=== PATIENT | male | born 1975 | race Asian ===

== ENCOUNTER 2017-02-24 16:17 | Emergency (ER) | payer MEDICARE, OTHER ==
[~2017-02-24] VITALS: Ht 149.9 cm; Wt 111.5 kg
[~2017-02-24 16:17] MED LIST: ALLO100T PO; LEVO150 PO
[2017-02-24] MEDS ORDERED: FentaNYL CITRATE-PF 100 MCG/2 ML VIAL IVP ONE (18:30)
[2017-02-24] MEDS ORDERED: SODIUM CHLORIDE 0.9% 1,000 ML IV ONE (18:30)
[2017-02-24] MEDS ORDERED: ETOMIDATE 2 MG/ML 10 ML VIAL IVP ONE (18:30)
[2017-02-24] MEDS ORDERED: MIDAZOLAM HCL 5 MG/ML VIAL IVP ONE (18:30)
[2017-02-24 21:07] VITALS: BP 118/87
== END 2017-02-24 21:34 | disposition home or self-care (01) ==
LOC: EMS 16:35
DX: S43.014A Anterior dislocation of right humerus, initial encounter (principal); E03.9 Hypothyroidism, unspecified; X58.XXXA Exposure to other specified factors, initial encounter; Y93.89 Activity, other specified; Y92.89 Other specified places as the place of occurrence of the external cause; Y99.8 Other external cause status
CPT/HCPCS: 23650; 73030; 96361; 96374; 96375; 99285; J2250; J3010; J3490; J7030; 99152; 99153